=== PATIENT | female | born 1990 | race Caucasian/White ===

== ENCOUNTER 2021-03-25 19:23 | Emergency (ER) | payer BC, MEDICAID, SELFPAY ==
[2021-03-25 19:42] VITALS: BP 124/82; PULSE 118; RESP 16; TEMP 37.7; O2SAT 97
--- NOTE | 2021-03-25 19:45 | ED_ITS ---
HPI - Dental/Oral General: Chief complaint: Dental/Oral Stated complaint: tooth pain Time Seen by Provider: 03/25/21 19:45 History of Present Illness: 30-year-old female comes in today for complaints of dental pain and generalized body aches. Patient reports a history of a dental infection in the past that caused similar body aches. Patient was seen at primary care's office this morning and had a quest COVID-19 test sent to lab. Patient was prescribed amoxicillin and dexamethasone but was unable to get the prescriptions filled. Patient appears mildly unwell but not toxic. Patient appears in mild to moderate pain. Review of Systems Const: Reports: chills and body aches ENMT: Reports: dental pain PFS ED PFSH: Medical History (Updated 03/25/21 @ 19:56 by JOO Joseph) Lower respiratory infection Social History Smoking and tobacco status: current every day smoker Physical Exam Const: COMMON NORMALS: alert HENMT: NOSE: Nasal discharge present MOUTH: Normal oral and palatal mucosa present; no drooling TEETH & GINGIVA: Yes caries THROAT: posterior oropharynx normal Eye: COMMON NORMALS: Equal, round and reactive pupils present and EOMs intact bilaterally PUPIL: Yes Equal, round and reactive pupils present Resp: COMMON NORMALS: normal respiratory effort and clear to auscultation bilaterally AUSCULTATION: clear to auscultation bilaterally Cardio: COMMON NORMALS: regular rate and regular rhythm RATE: regular rate RHYTHM: regular rhythm Extremity: COMMON NORMALS: normal to inspection Neuro: SENSORIUM/ORIENTATION: Yes alert Psych: COMMON NORMALS: cooperative Skin: COMMON NORMALS: no rashes or lesions noted GENERAL SKIN EXAM: no rashes or lesions noted Course Vital Signs: Vital signs: Vital Signs Temperature 100 F H 03/25/21 19:42 Pulse Rate 118 H 03/25/21 19:42 Respiratory Rate 16 03/25/21 19:42 Blood Pressure 124/82 03/25/21 19:42 Pulse Oximetry 97 03/25/21 19:42 MDM - Dental/Oral Medical Decision Making 30-year-old female comes in today with complaints of body aches and chills. Patient also reports some dental pain. Patient thinks that she may have a dental infection. Review of the record noted that patient had been seen by a primary care office this morning and started on amoxicillin and dexamethasone. Patient did not get prescriptions filled. On exam oral mucosa is normal, patient has multiple caries, patient does have some mild nasal drainage, no significant lymphadenopathy, posterior pharynx is symmetrical without any abscess or abnormality. Lungs are clear to auscultation. Abdomen soft nontender. Vital signs note a temperature of 100 and pulse of 118 with the remainder being unremarkable. Differential diagnosis includes dental caries, dental infection, viral syndrome, possible COVID-19. We will start patient on her dexamethasone and Augmentin that she was prescribed this morning. I went ahead and gave patient 30 mg of Toradol, 1 hydrocodone tablet, and 1 dose of acetaminophen 500 mg. I encourage patient to drink plenty of fluids, get her prescription filled and take them as directed. Patient reported understanding and agreed to plan. Discharge Plan Discharge Patient Disposition: Home Clinical Impression: Dental caries, Lower respiratory infection Condition: Stable Prescriptions: New ibuprofen 600 mg tablet 600 mg PO Q6H PRN (Reason: fever or pain) Qty: 20 0RF No Action amoxicillin-pot clavulanate [Augmentin] 875-125 mg tablet 1 tab PO BID 10 Days Qty: 20 0RF dexamethasone 6 mg tablet 6 mg PO DAILY 7 Days Qty: 7 0RF Discharge Orders: Discharge ED (Routine); Ordered 03/25/21 Ordered By: Edouard Jarquin Discharge Diet: Usual diet Discharge Activity: Increase activity as tolerated Patient Instructions: Dental Abscess (ED), Opioid Safety Activity Restrictions/Additional Instructions: Home and rest. Plenty of water. Follow-up with primary care regarding your COVID-19 test. I have a strong suspicion you may be positive for COVID-19. Continue with antibiotic and dexamethasone as prescribed. Use acetaminophen and ibuprofen for fever and pain. Return to the ER for new concerns. Coding Level of Care Code ED Armoring Machine Operator for Rayg Fwd History Problem Focused Exam Problem Focused Medical Decision Making Low Complexity Time Spent (min) 20
[2021-03-25] MEDS: acetaminophen 500 mg Tablet PO (20:14)
[2021-03-25] MEDS: HYDROcodone-acetaminophen 5-325 mg Tablet 1 TAB PO (20:14)
[2021-03-25] MEDS: ketorolac 30 mg/mL INJ IM (20:14)
[2021-03-25] MEDS: dexamethasone 4 mg Tablet 10 MG PO (20:15)
[2021-03-25] MEDS: amoxicillin-clav 875-125 mg Tablet 1 TAB PO (20:16)
[2021-03-25 20:21] VITALS: RESP 20
== END 2021-03-25 20:24 | disposition home or self-care (01) ==
PROVIDERS: Emergency Provider Nurse Practitioner Family
DX: K02.9 Dental caries, unspecified (principal); U07.1 COVID-19; F17.210 Nicotine dependence, cigarettes, uncomplicated
CPT/HCPCS: 87635; 96372; 99283; J1885; J8540

== ENCOUNTER 2021-04-07 13:50 | Emergency (ER) | payer BC, MEDICAID, SELFPAY ==
[2021-04-07 14:03] VITALS: BP 104/69; PULSE 86; RESP 18; TEMP 36.6; O2SAT 99; BMI 19.3
--- NOTE | 2021-04-07 14:09 | W.ED.URI ---
HPI - URI/Sore Throat General: Chief Complaint: General Medical Stated Complaint: body aches, bloody nose, diarrhea Time Seen by Provider: 04/07/21 14:09 History of Present Illness: Patient is a 30-year-old female comes to the ED with Covid symptoms. Patient was seen here in the ED back on March 25 and she tested positive for COVID-19. She is currently taking Augmentin, ibuprofen for body aches and just finished taking dexamethasone. Patient still having some body aches, no taste or smell nasal congestion drainage. She has had some nosebleeds as well over the last week. No current nosebleed here in the ED. patient says she is not coughing up blood but has been having nosebleeds and then coughing up the blood from the nosebleeds. Associated symptoms: Reports epistaxis and nasal congestion; Deny abdominal pain, chills, chest pain, diarrhea, fever(s), headache(s), nausea or vomiting Review of Systems Const: Reports: body aches; Denies: fever(s), chills or fatigue Eyes: Denies: change in vision or eye discomfort ENMT: Reports: nasal discharge, nasal congestion, epistaxis and other (No taste or smell); Denies: throat pain or odynophagia Card: Denies: chest pain, palpitations, edema, swelling of feet/ankles, dyspnea on exertion or orthopnea Resp: Reports: non-productive cough; Denies: dyspnea or productive cough GI: Denies: abdominal pain, nausea, vomiting, diarrhea, constipation or hematochezia : Denies: flank pain, dysuria or hematuria Musc: Denies: neck pain, back pain or extremity swelling Skin/Breast: Denies: rash or new lesions Neuro: Denies: headache(s), numbness in extremities or weakness in extremities PFS ED PFSH: Medical History Lower respiratory infection Surgical History No pertinent past surgical history Social History Smoking and tobacco status: current every day smoker Physical Exam Const: COMMON NORMALS: no acute distress, patient oriented x3 and alert GENERAL APPEARANCE: cooperative and comfortable HENMT: COMMON NORMALS: normocephalic HEAD & SCALP: normocephalic NOSE: Nasal discharge present clear and Epistaxis present on the left anterior source and dried blood present; no active bleeding MOUTH: Normal oral and palatal mucosa present THROAT: posterior oropharynx normal and uvula midline Neck/C-Spine: COMMON NORMALS: supple GENERAL: Yes normal visual inspection Resp: COMMON NORMALS: normal respiratory effort, No retractions, No use of accessory muscles and clear to auscultation bilaterally AUSCULTATION: clear to auscultation bilaterally Cardio: COMMON NORMALS: regular rate, regular rhythm, S1 normal heart sound present, S2 normal heart sound present, No gallops present (Cardio), No clicks present (Cardio), No murmurs present (Cardio) and Peripheral pulses 2+ throughout RATE: regular rate RHYTHM: regular rhythm HEART SOUNDS: S1 normal heart sound present and S2 normal heart sound present PERIPHERAL PULSES: Peripheral pulses 2+ throughout GI: COMMON NORMALS: Normal to inspection, nondistended, normoactive bowel sounds present, Soft to palpation, non-tender and no masses PALPATION: Yes Soft to palpation : COMMON NORMALS: Yes no CVA tenderness BLADDER/KIDNEY EXAM: Yes no CVA tenderness Back/Pelvis: COMMON NORMALS: no CVA tenderness Extremity: COMMON NORMALS: normal to inspection Neuro: COMMON NORMALS: patient oriented x3 and moves all extremities SENSORIUM/ORIENTATION: Yes alert Skin: GENERAL SKIN EXAM: dry skin Course Vital Signs: Vital signs: Vital Signs Temperature 97.9 F 04/07/21 14:03 Pulse Rate 86 04/07/21 14:03 Respiratory Rate 18 04/07/21 14:03 Blood Pressure 104/69 04/07/21 14:03 Pulse Oximetry 99 04/07/21 14:03 MDM - URI/Sore Throat Medical Decision Making Patient is a 30-year-old female comes to the ED with continuing COVID-19 symptoms. Patient was diagnosed with COVID-19 back on March 25. She was discharged then with prescriptions for Augmentin, Decadron and ibuprofen. Patient finished taking her Decadron and is still taking her Augmentin. Her main complaint is she is still having some body aches nasal congestion drainage and has had a couple nosebleeds as well. No active nose bleed here in the ED. Vitals are stable. Patient appears nontoxic in no acute distress or pain. There is some dried blood noted in left nare with no active bleeding seen. Lungs are clear to auscultation bilaterally and rest of exam benign. Patient appears healthy and stable for discharge home. She is diagnosed COVID-19 and given a prescription for Tessalon Perles for cough and for some more ibuprofen 600 mg for fever/pain/body aches. She was told to follow-up with her PCP in 7 to 10 days reevaluation. Return to ED precautions given. Patient understood and agreed with plan. Discharge Plan Discharge Patient Disposition: Home Clinical Impression: COVID-19 Condition: Stable Prescriptions: New Tessalon Perles 100 mg capsule 100 mg PO TID PRN (Reason: cough) Qty: 20 0RF ibuprofen 600 mg tablet 600 mg PO Q8H PRN (Reason: fever or pain) Qty: 20 0RF No Action amoxicillin-pot clavulanate [Augmentin] 875-125 mg tablet 1 tab PO BID 10 Days Qty: 20 0RF dexamethasone 6 mg tablet 6 mg PO DAILY 7 Days Qty: 7 0RF ibuprofen 600 mg tablet 600 mg PO Q6H PRN (Reason: fever or pain) Qty: 20 0RF Discharge Orders: Discharge ED (Routine); Ordered 04/07/21 Ordered By: Cyril West Referrals: HERI Nguyen, [employer] BUSINESS ANALYST [Primary Care Provider] - Discharge Diet: Regular Discharge Activity: Increase activity as tolerated Patient Instructions: COVID-19 (Coronavirus Disease 2019) (ED), How to Recover from COVID-19 at Home (ED) Activity Restrictions/Additional Instructions: Follow-up with medical provider as directed in 5 to 7 days for reevaluation.Take medications as prescribed. Return to the ER or your medical provider if condition worsens. Please read and understand discharge instructions. Thank you for choosing [facility] for your healthcare needs today. Please realize this is an emergency room and that we are providing you with a medical screening exam and this may not be complete and all inclusive of all the testing and or work up that you may need to determine your ailment or severity of your illness. It is very important that you follow up as instructed or that you return to the Emergency Department should you have concerns or if your condition changes or worsens in any way. Coding Level of Care Code ED Remarketing Rep for [employer] Exam Comprehensive
== END 2021-04-07 14:24 | disposition home or self-care (01) ==
PROVIDERS: Emergency Provider Physician Assistant; PCP Nurse Practitioner Family
DX: U07.1 COVID-19 (principal); F17.210 Nicotine dependence, cigarettes, uncomplicated
CPT/HCPCS: 99281

== ENCOUNTER 2024-05-07 10:39 | Emergency (ER) | payer BC, MEDICAID, SELFPAY ==
[2024-05-07 10:51] VITALS: BP 104/70; PULSE 90; RESP 17; TEMP 37; O2SAT 98; BMI 24.1
--- NOTE | 2024-05-07 11:21 | ED_ITS ---
HPI - General Adult 2 General: Chief complaint: Nausea/Vomiting/Diarrhea Stated complaint: n/v/d/f, cough, headache, abd pain Time Seen by Provider: 05/07/24 11:07 Source: patient Mode of arrival: ambulatory Limitations: no limitations History of Present Illness: Patient is a 33-year-old female presents to ED today stating she has not felt well for close to a month. She states she initially began feeling ill with cough, congestion, body aches, headaches. She states she was diagnosed with a viral illness. Patient states she later followed up with sinusitis like complaints and was diagnosed with bacterial sinusitis. She states she was initially placed on Amoxicillin but reportedly had a reaction and was switched to Doxycycline. Patient feels like her sinus related complaints have improved. She is having vomiting and diarrhea. At some point she states clinic ordered stool samples and she dropped these off today. She reports having at a maximum of 2-3 episodes of diarrhea in a 24-hour period. She is not having any abdominal pain currently. Onset (ago): week(s) Relieving factors: none Exacerbating factors: none Associated symptoms: Reports headache(s), malaise, nausea and vomiting; Deny chest pain, dyspnea, rash, palpitations or syncope Related Data Home Medications ?Medication ?Instructions ?Recorded ?Confirmed doxycycline hyclate 100 mg capsule 100 mg PO BID 05/0705/07/24 Allergies Allergy/AdvReac Type Severity Reaction Status Date / Time Unable to Assess Allergy Verified 05/09/23 15:30 Review of Systems 2 Const: Reports: body aches, fatigue and malaise; Denies: fever(s) or chills Eyes: Denies: change in vision or blurry vision ENMT: Reports: nasal congestion Card: Denies: chest pain, palpitations, irregular heart rhythm, lightheadedness, syncope or dyspnea on exertion Resp: Reports: non-productive cough; Denies: dyspnea, productive cough or pain on inspiration GI: Reports: nausea, vomiting and diarrhea; Denies: abdominal pain or heartburn : Denies: flank pain, difficulty voiding, dysuria, urinary frequency or urinary urgency Musc: Denies: neck pain, back pain, extremity pain, extremity swelling, joint pain or joint swelling Skin/Breast: Denies: rash Neuro: Reports: headache(s); Denies: numbness in extremities, weakness in extremities or sensory changes PFSH ED 2 PFSH: Medical History COVID-19 Lower respiratory infection Surgical History No pertinent past surgical history Social History Smoking and tobacco/nicotine status: current every day tobacco/nicotine user Female Reproductive History: Date of last menstrual period: 04/30/24 Physical Exam 2 Const: COMMON NORMALS: no acute distress, average body habitus, patient oriented x3, no limitations, healthy appearing, alert and well nourished G ENERAL APPEARANCE: cooperative HENMT: COMMON NORMALS: normocephalic, atraumatic, EAC's normal, TM's normal bilaterally and Normal external nose present HEAD & SCALP: normocephalic and atraumatic FACE & SINUS: normal facial exam and sinuses nontender NOSE: N ormal external nose present EXTERNAL AUDITORY CANAL: EAC's normal TYMPANIC MEMBRANE: TM's normal bilaterally MOUTH: Normal oral and palatal mucosa present and lip normal TEETH & GINGIVA: Yes poor dentition THROAT: p osterior oropharynx normal and tonsils normal Eye: GENERAL EYE: appearance normal, both eyes and all related structures and normal light reflex DIRECT OPHTHALMOSCOPY: Yes normal light reflex Neck/C-Spine: COMMON NORMALS: full ROM, no lymphadenopathy, supple and no meningeal signs Chest: COMMONS NORMALS: normal inspection of the chest Resp: COMMON NORMALS: normal respiratory effort and clear to auscultation bilaterally AUSCULTATION: clear to auscultation bilaterally Cardio: COMMON NORMALS: regular rate and regular rhythm RATE: regular rate RHYTHM: regular rhythm GI: COMMON NORMALS: Normal to inspection, nondistended, normoactive bowel sounds present, Soft to palpation, non-tender, No hepatosplenomegaly present and no masses PALPATION: Yes Soft to palpation and Yes No hepatosplenomegaly present : COMMON NORMALS: Yes no CVA tenderness BLADDER/KIDNEY EXAM: Yes no CVA tenderness Back/Pelvis: COMMON NORMALS: no CVA tenderness and thoracic and lumbar spine normal to inspection Extremity: COMMON NORMALS: normal to inspection GENERAL: Yes normal exam except as noted Neuro: COMMON NORMALS: patient oriented x3, moves all extremities, no focal motor deficits, no sensory deficits noted and gait normal S ENSORIUM/ORIENTATION: Yes alert MENINGEAL SIGNS: Yes no meningeal signs Skin: COMMON NORMALS: no rashes or lesions noted GENERAL SKIN EXAM: no rashes or lesions noted Course 2 Vital Signs: Vital signs: Vital Signs Temperature 98.6 F 05/07/24 10:51 Pulse Rate 90 05/07/24 10:51 Respiratory Rate 17 05/07/24 10:51 Blood Pressure 104/70 05/07/24 10:51 Pulse Oximetry 98 05/07/24 10:51 Oxygen Delivery Me thod Room Air 05/07/24 10:51 MDM - General Adult Medical Decision Making Patient clinically appears no acute distress. Vital signs are stable. Blood work overall is unremarkable. She is positive for influenza A. She is outside the window of any therapeutic benefit of Tamiflu. Conservative therapies discussed. Recommend she continue to follow-up with your primary care provider. Medical Records I reviewed the patient's medical records. Lab Data I reviewed the patient's lab results. 05/07/24 11:49 05/07/24 11:49 Radiology Impressions Chest X-Ray 05/07/24 11:30 IMPRESSION: 1. No acute infiltrates 2. Lungs appear mildly hyperinflated suggesting possible asthma Laboratory Results WBC 2.67 10^3/uL (3.29-11.43) L 05/07/24 11:49 RBC 4.94 10^6/uL (3.85-5.65) 05/07/24 11:49 Hgb 14.50 g/dL (11.27-16.99) 05/07/24 11:49 Hct 44.5 % (36-47) 05/07/24 11:49 MCV 90.1 fl (85-98) 05/07/24 11:49 MCH 29.4 pg (27-33) 05/07/24 11:49 MCHC 32.6 g/dL (30-55) 05/07/24 11:49 RDW 13.3 % (12.1-15.1) 05/07/24 11:49 Plt Count 192 10^3/cmm (157-399) 05/07/24 11:49 MPV 11.0 fL (7.4-10.4) H 05/07/24 11:49 Neut % (Auto) 41.3 % 05/07/24 11:49 Lymph % (Auto) 42.7 % 05/07/24 11:49 [place] % (Auto) 14.2 % 05/07/24 11:49 Eos % (Auto) 0.7 % 05/07/24 11:49 Baso % (Auto) 0.7 % 05/07/24 11:49 Neut # (Auto) 1.10 10^3/uL (1.8-7.7) L 05/07/24 11:49 Lymph # (Auto) 1.1 10^3/uL (0.8-4.8) 05/07/24 11:49 [place] # (Auto) 0.4 10^3/uL (0.2-0.9) 05/07/24 11:49 Eos # (Auto) 0.0 10^3/uL (0.0-0.8) 05/07/24 11:49 Baso # (Auto) 0.0 10^3/uL (0.0-0.1) 05/07/24 11:49 Nucleated RBC % (auto) 0 % 05/07/24 11:49 Nucleated RBCs # 0.0 /100WBC 05/07/24 11:49 Sodium 135 mmol/L (136-145) L 05/07/24 11:49 Potassium 4.0 mmol/L (3.5-5.1) 05/07/24 11:49 Chloride 100 mmol/L (98-107) 05/07/24 11:49 Carbon Dioxide 22 mmol/L (22-29) 05/07/24 11:49 Anion Gap 17.0 (5-19) 05/07/24 11:49 BUN 13 mg/dL (6-20) 05/07/24 11:49 Creatinine 0.5 mg/dL (0.5-0.9) 05/07/24 11:49 GFR Calculation 143.0 mL/min (90-130) H 05/07/24 11:49 Glucose 75 mg/dL (65-115) 05/07/24 11:49 Calculated Osmolality 279 mOsm/kg (285-295) L 05/07/24 11:49 Calcium 8.6 mg/dL (8.5-10.5) 05/07/24 11:49 Total Bilirubin 0.2 mg/dL (0.15-1.2) 05/07/24 11:49 AST 15 U/L (0-32) 05/07/24 11:49 ALT 6 U/L (0-33) 05/07/24 11:49 Alkaline Phosphatase 64 U/L (35-105) 05/07/24 11:49 Total Protein 6.9 g/dL (6.6-8.7) 05/07/24 11:49 Albumin 4.0 g/dL (3.5-5.2) 05/07/24 11:49 Globulin 2.9 g/dL (1.3-4.6) 05/07/24 11:49 Lipase 18 U/L (13-60) 05/07/24 11:49 HCG, Qual Negative (Negative) 05/07/24 11:49 Urine Color Yellow (Yellow) 05/07/24 12:05 Urine Appearance Clear (CLEAR) 05/07/24 12:05 Urine pH 5.5 (5-7) 05/07/24 12:05 Ur Specific [place] 1.021 (1.005-1.030) 05/07/24 12:05 Urine Protein Trace (Negative) A 05/07/24 12:05 Urine Glucose (UA) Negative (Normal) 05/07/24 12:05 Urine Ketones 3+ (Negative) H 05/07/24 12:05 Urine Blood 1+ (Negative) A 05/07/24 12:05 Urine Nitrate Negative (Negative) 05/07/24 12:05 Urine Bilirubin Negative (Negative) 05/07/24 12:05 Urine Urobilinogen 1.0 mg/dL (Negative) 05/07/24 12:05 Ur Leukocyte Esterase Negative (Negative) 05/07/24 12:05 Urine RBC 3-5 /hpf (0-2) 05/07/24 12:05 Urine WBC 0-5 /hpf (0-5) 05/07/24 12:05 Ur Squamous Epith Cells 0-5 /hpf (0-5) 05/07/24 12:05 Amorphous Sediment Not Reportable 05/07/24 12:05 Urine Bacteria None seen /hpf (NONE) 05/07/24 12:05 Hyaline Casts 0.81 /lpf 05/07/24 12:05 Influenza A (PCR) Positive (Negative) 05/07/24 10:55 Influenza Type B (PCR) Negative (Negative) 05/07/24 10:55 RSV (PCR) Negative (Negative) 05/07/24 10:55 SARS-CoV-2 (PCR) Negative (Negative) 05/07/24 10:55 All radiology interpretation(s) finalized by discharge Discharge Plan Discharge Patient Disposition: Home Clinical Impression: Influenza A Condition: Stable Prescriptions: No Action doxycycline hyclate 100 mg capsule 100 mg PO BID Discharge Orders: Discharge ED (Routine); Ordered 05/07/24 Ordered By: Alesia Mccarty Referrals: HERI Nguyen, TOWEL SEWER [Primary Care Provider] - Patient Instructions: Influenza (DC) Stand Alone Forms: Work/School Release Print Language: Ukrainian Coding Level of Care Code ED Data Communications Engineer for [employer]
--- NOTE | 2024-05-07 11:30 | XRR_ITS ---
PROCEDURE INFORMATION: Exam: XR Chest Exam date and time: 05/07/2024 11:32 AM Age: 33 years old Clinical indication: Cough; Additional info: Cough/congestion TECHNIQUE: Imaging protocol: Radiologic exam of the chest. Views: 1 view. COMPARISON: No relevant prior studies available. FINDINGS: Lungs: There is either a vessel on end or a calcified granuloma in the medial right lung base. There are no infiltrates. The lungs appear hyperinflated suggesting possible asthma Pleural spaces: Unremarkable. No pleural effusion. No pneumothorax. Heart/Mediastinum: The heart size is within normal limits. Bones/joints: Unremarkable. XR/XR chest 1V portable [id number] IMPRESSION: 1. No acute infiltrates 2. Lungs appear mildly hyperinflated suggesting possible asthma
[2024-05-07 11:53] LABS: Influenza A POSITIVE (Negative); Influenza B NEGATIVE (Negative); Respiratory Syncytial Virus Ce NEGATIVE (Negative); SARS-CoV-2 PCR NEGATIVE (Negative)
[2024-05-07 12:12] LABS: Basophils % 0.7 %; Eosinophils % 0.7 %; Hematocrit 44.5 % (36-47); Lymphocytes # 1.1 10^3/uL (0.8-4.8); Lymphocytes % 42.7 %; Mean Corpuscular HGB Conc 32.6 g/dL (30-55); Mean Corpuscular Hemoglobin 29.4 pg (27-33); Mean Corpuscular Volume 90.1 fl (85-98); Monocytes # 0.4 10^3/uL (0.2-0.9); Monocytes % 14.2 %; Neutrophils % 41.3 %; Nucleated Red Blood Cells % 0 %; Platelet Count 192 10^3/cmm (157-399); Red Blood Count 4.94 10^6/uL (3.85-5.65); Red Cell Distribution Width 13.3 % (12.1-15.1); White Blood Count 2.67 10^3/uL (3.29-11.43)
[2024-05-07 12:25] LABS: Bilirubin Urine Negative (Negative); Blood Urine 1+ (Negative); Glucose Urine UA Negative (Normal); Ketones Urine 3+ (Negative); Leukocyte Esterase Urine Negative (Negative); Nitrate Urine Negative (Negative); Protein Urine Trace (Negative); Specific Gravity, Urine 1.021 (1.005-1.030); Urine Appearance Clear (CLEAR); Urine Color Yellow (Yellow); pH Urine 5.5 (5-7)
[2024-05-07 12:26] LABS: HCG, Serum Qual Negative (Negative)
[2024-05-07 12:30] LABS: Add Urine Microscopic? YES; Bacteria Urine None Seen /hpf; Hyaline Casts Urine 0.81 /lpf; Squamous Epithelial Cell Urine 0-5 /hpf (0-5); WBC Urine 0-5 /hpf (0-5)
[2024-05-07 12:31] LABS: Alanine Aminotransferase 6 U/L (0-33); Alkaline Phosphatase 64 U/L (35-105); Aspartate Amino Transferase 15 U/L (0-32); Blood Urea Nitrogen 13 mg/dL (6-20); Calcium 8.6 mg/dL (8.5-10.5); Carbon Dioxide 22 mmol/L (22-29); Chloride 100 mmol/L (98-107); Creatinine Clr Calc Pharmacy 137.7245; Globulin 2.9 g/dL (1.3-4.6); Glucose 75 mg/dL (65-115); Lipase 18 U/L (13-60); Osmolality Calculated 279 mOsm/kg (285-295); Sodium 135 mmol/L (136-145); Total Bilirubin 0.2 mg/dL (0.15-1.2); Total Protein 6.9 g/dL (6.6-8.7)
[2024-05-07 13:05] VITALS: BP 109/76; PULSE 61; O2SAT 99
== END 2024-05-07 13:06 | disposition home or self-care (01) ==
PROVIDERS: Emergency Medicine; Emergency Provider Physician Assistant; PCP Nurse Practitioner Family
DX: J10.1 Influenza due to other identified influenza virus with other respiratory manifestations (principal); Z11.52 Encounter for screening for COVID-19; Z72.0 Tobacco use
CPT/HCPCS: 36415; 71045; 80053; 81001; 83690; 84703; 85025; 87637; 99284